=== PATIENT | female | born 1985 | race Caucasian/White ===

== ENCOUNTER 2020-09-28 12:51 | Emergency (ER) | payer OTHER ==
[~2020-09-28] VITALS: Ht 162.6 cm; Wt 93.0 kg
[~2020-09-28 12:51] MED LIST: ZOFRAN4 MG PO
[2020-09-28] MEDS ORDERED: ALPRAZOLAM 0.50.5 M1 PO (13:06)
[2020-09-28] MEDS ORDERED: ESCITALOPRAM OX20 MG PO (13:07)
[2020-09-28 13:27] LABS: HEMATOCRIT 42.5 % (37.0-47.0); HEMOGLOBIN 14.5 gm/dL (12.0-15.0); MCH 30.4 pg (26.0-34.0); MCV 89.5 fL (80.0-100.0); RBC 4.75 mil/uL (4.20-5.00); RDW 13.2 % (10.5-14.5); WBC 7.9 thou/uL (4.0-11.0)
[2020-09-28 13:41] LABS: ANION GAP 10 mmol/L (7-16); BUN 13 mg/dL (7-18); CALCIUM 8.9 mg/dL (8.5-10.1); CHLORIDE 105 mmol/L (98-107); CO2 25 mmol/L (21-32); CREATININE 0.9 mg/dL (0.6-1.0); GLUCOSE 135 mg/dL (74-106); POTASSIUM 3.8 mmol/L (3.5-5.1); SODIUM 140 mmol/L (136-145)
[2020-09-28 13:48] LABS: ALBUMIN 3.8 g/dL (3.4-5.0); SGOT 14 U/L (15-37); SGPT 22 U/L (14-59); TOTAL BILIRUBIN 0.2 mg/dL (0.2-1.0); TOTAL PROTEIN 7.1 g/dL (6.4-8.2); TROPONIN-I <0.06 ng/mL (<0.06)
[2020-09-28 15:18] VITALS: BP 119/74
[2020-09-28] MEDS ORDERED: BACTRIM DS TAB1 EAC1 PO (15:46)
--- NOTE | 2020-10-01 07:10 | EKG ---
[address] [address] ELECTROCARDIOGRAM REPORT Name: JUAN NAVAS Room #: [facility]#: [id number] Admission: 09/28/20 Attend Phys: Discharge: 09/28/20 Date of : 85 Report #: [id number] [facility] ED Test Date: 2020-09-28 Test Time: 12:51:14 Pat Name: JUAN NAVAS Department: Room: Gender: F Manager Of Quality: JCMELVIN : 1985 Requested By: Ciarra Torres Order Number: [id number] MD: Hugo Beard Measurements Intervals [place] Rate: 71 P: 54 WV: 110 QRS: 20 QRSD: 83 T: 54 QT: 379 QTc: 412 Interpretive Statements Sinus rhythm Borderline short [place] interval No previous ECG available for comparison Electronically Signed On 10-01-2020 7:09:51 CDT by Hugo Beard [email or web address] <ELECTRONICALLY SIGNED> By: Hugo Beard MD, [facility] 10/01/20 0709 [id number] 1251 Hugo Beard MD, FACC /EPI
== END 2020-09-28 15:52 | disposition home or self-care (01) ==
LOC: ER 12:51
PROVIDERS: Nurse Practitioner Family
DX: R07.89 Other chest pain (principal); L02.211 Cutaneous abscess of abdominal wall; Z98.890 Other specified postprocedural states; Z90.710 Acquired absence of both cervix and uterus